=== PATIENT | male | born 1955 | race Caucasian/White ===

== ENCOUNTER 2017-12-29 17:30 | Emergency (ER) | payer BC ==
[2017-12-29 17:37] VITALS: RESP 16
--- NOTE | 2017-12-29 18:00 | CPEKG ---
Heart Rate: 64 RR Interval: 938 P-R Interval: 144 QRSD Interval: 90 QT Interval: 388 QTC Interval: 401 P [place]: -29 QRS [place]: 34 T Wave [place]: 10 EKG Severity - NORMAL ECG - EKG Impression: SINUS RHYTHM Electronically Signed By: Alec Rios 30-Dec-2017 00:14:05
[2017-12-29 18:09] LABS: PLATELET COUNT 233 10^3/uL (150-400)
--- NOTE | 2017-12-29 18:15 | EDPHY ---
H & P Stated Complaint: sent from [facility], abnormal EKG Time Seen by Provider: 12/29/17 18:04 HPI/ROS: CHIEF COMPLAINT: "Tingling in chest" HISTORY OF PRESENT ILLNESS: The patient presents emergency department with a complaint of tingling in his chest. The patient reportedly has a history of coronary artery disease status post CABG 6 years ago with an unremarkable stress test 3 years ago. He has been having brief paresthesias in his chest today. The patient denies any exertional chest pain or shortness of breath. 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 The patient denies any fever, cough or congestion. The patient denies any history of exertional chest pain or shortness of breath. He denies recent medication changes. He has been compliant with his regular medications and aspirin. REVIEW OF SYSTEMS: A comprehensive 10 point review of systems is otherwise negative aside from elements mentioned in the history of present illness. Source: Patient Exam Limitations: No limitations - Personal History Current Tetanus/Diphtheria Vaccine: Unsure Current Tetanus Diphtheria and Acellular Pertussis (TDAP): Unsure Tetanus Vaccine Date: UNSURE - Medical/Surgical History Hx Asthma: Yes Hx Chronic Respiratory Disease: No Hx Diabetes: No Hx Cardiac Disease: Yes Hx Renal Disease: No Hx Cirrhosis: No Hx Alcoholism: No Hx HIV/AIDS: No Hx Splenectomy or Spleen Trauma: No Other PMH: CABG x2 vessel, HTN - Social History Smoking Status: Former smoker - Physical Exam Exam: General Appearance: Alert, no distress Eyes: Pupils equal and round no pallor or injection ENT, Mouth: Mucous membranes moist Respiratory: There are no retractions, lungs are clear to auscultation Cardiovascular: Regular rate and rhythm Gastrointestinal: Abdomen is soft and nontender, no masses, bowel sounds normal Neurological: A&O, normal motor function, normal sensory exam, normal cranial nerves Skin: Warm and dry, no rashes Musculoskeletal: Neck is supple nontender Extremities: symmetrical, full range of motion Constitutional: Initial Vital Signs Temperature (C) 36.9 C 12/29/17 17:35 Heart Rate 71 12/29/17 17:35 Respiratory Rate 16 12/29/17 17:35 Blood Pressure 134/75 H 12/29/17 17:35 O2 Sat (%) 94 12/29/17 17:35 O2 Delivery Mode Room Air Allergies/Adverse Reactions: codeine [Codeine] Allergy (Verified 12/29/17 17:38) Rash Penicillins Allergy (Verified 12/29/17 17:38) Rash Home Medications: Medication Instructions Recorded Aspirin [Aspirin 81mg (OTC)] 81 mg PO DAILY 03/09/12 Multivitamins [Multivitamin (OTC)] 1 each PO DAILY 03/09/12 Rosuvastatin Calcium [Crestor 20mg 20 mg PO DAILY 02/20/13 (RX)] CO Q-10 09/03/14 Medical Decision Making - Diagnostics EKG Interpretation: EKG: Complete interpretation has been separately recorded in the [employer] archive. Summary impression: Sinus rhythm, rate 64, no ischemic changes noted Imaging Results: Imaging Impressions Chest X-Ray 12/29/17 18:04 Impression: Negative chest. ED Course/Re-evaluation: The patient presents to the ED for evaluation of atypical chest pain. Upon arrival the patient's EKG is nonischemic in demonstrates only nonspecific ST T wave changes. The patient's troponin is normal despite a day of symptoms. His chest x-ray is unremarkable. The patient's symptoms certainly sound atypical. I talked with him about options including hospitalization versus discharged home with follow up with Cardiology for stress testing. The patient prefers to be discharged home. He does understand to return to the ED for protracted chest pain or shortness of breath. The patient has been informed about our ability to fully exclude the presence of progressive coronary artery disease. Differential Diagnosis: Differential diagnosis considered includes acute coronary syndrome, pericarditis , arrhythmia, aortic dissection, pneumonia - Data Points Laboratory Results: Laboratory Results 12/29/17 18:02 12/29/17 18:02 12/29/17 12/29/17 18:02 18:02 WBC 6.49 10^3/uL 10^3/uL (3.80-9.50) RBC 4.89 10^6/uL 10^6/uL (4.40-6.38) Hgb 14.2 g/dL g/dL (13.7-17.5) Hct 40.7 % % (40.0-51.0) MCV 83.2 fL fL (81.5-99.8) MCH 29.0 pg pg (27.9-34.1) MCHC 34.9 g/dL g/dL (32.4-36.7) RDW 12.8 % % (11.5-15.2) Plt Count 233 10^3/uL 10^3/uL (150-400) MPV 10.5 fL fL (8.7-11.7) Neut % (Auto) 57.6 % % (39.3-74.2) Lymph % (Auto) 28.0 % % (15.0-45.0) [place] % (Auto) 11.1 % % (4.5-13.0) Eos % (Auto) 2.3 % % (0.6-7.6) Baso % (Auto) 0.5 % % (0.3-1.7) Nucleat RBC Rel Count 0.0 % % (0.0-0.2) Absolute Neuts (auto) 3.74 10^3/uL 10^3/uL (1.70-6.50) Absolute Lymphs (auto) 1.82 10^3/uL 10^3/uL (1.00-3.00) Absolute Monos (auto) 0.72 10^3/uL 10^3/uL (0.30-0.80) Absolute Eos (auto) 0.15 10^3/uL 10^3/uL (0.03-0.40) Absolute Basos (auto) 0.03 10^3/uL 10^3/uL (0.02-0.10) Absolute Nucleated RBC 0.00 10^3/uL 10^3/uL (0-0.01) Immature Gran % 0.5 % % (0.0-1.1) Immature Gran # 0.03 10^3/uL 10^3/uL (0.00-0.10) Sodium 140 mEq/L mEq/L (135-145) Potassium 4.3 mEq/L mEq/L (3.5-5.2) Chloride 101 mEq/L mEq/L (97-110) Carbon Dioxide 29 mEq/l mEq/l (22-31) Anion Gap 10 mEq/L mEq/L (8-16) BUN 27 mg/dL H mg/dL (7-23) Creatinine 1.0 mg/dL mg/dL (0.7-1.3) Estimated GFR > 60 Glucose 78 mg/dL mg/dL (70-100) Calcium 9.9 mg/dL mg/dL (8.5-10.4) Troponin I < 0.012 ng/mL ng/mL (0.000-0.034) Departure - Departure Disposition: Home, Routine, Self-Care Clinical Impression: Chest pain Condition: Good Instructions: Chest Pain (ED) Additional Instructions: 1. Based upon the testing done in the Emergency Department today we see no evidence of a heart attack. 2. We are unable to fully exclude coronary artery disease based upon the testing available in the Emergency Department. 3. For this reason, we would like you to be seen by cardiology for consideration of additional testing within the next 3 days. 4. Please contact the workforce specialist you have been referred to schedule this appointment as soon as possible. Their offices are typically open from 8:30am- 5pm M-F. 5. Please return to the Emergency Department immediately for any recurrent chest pain, difficulty breathing or other concerns. Referrals: Helena Hernandez MD [Primary Care Provider] - As per Instructions
[2017-12-29 19:43] VITALS: BP 132/86; PULSE 59; TEMP 96.8; O2SAT 97
== END 2017-12-29 19:41 | disposition home or self-care (01) ==
DX: R07.9 Chest pain, unspecified (principal); I10 Essential (primary) hypertension; I25.810 Atherosclerosis of coronary artery bypass graft(s) without angina pectoris; J45.909 Unspecified asthma, uncomplicated; Z79.82 Long term (current) use of aspirin; Z87.891 Personal history of nicotine dependence

== ENCOUNTER → 2018-08-03 | Day surgery (SDC) | payer BC ==
[~2018-08-03] MED LIST: ASPIRIN EC 325 MG TAB PO ONE; ATROPINE SULFATE 1 MG/10 ML SYR IVP PRN; DIAZEPAM 5 MG TAB PO ONE; FAMOTIDINE 20 MG TAB PO ONE; HYDROCODONE/APAP 5/325 TAB PO PRN; IOPAMIDOL (ISOVUE-370) 150 ML BTL IV ONE; LIDOCAINE 1% 300 MG/30 ML SDV ONE; MIDAZOLAM 2 MG/2 ML VIAL ONE; NITROGLYCERIN 0.4 MG BTL SL PRN; NS 1,000 ML IV ONE; ONDANSETRON 4 MG/2 ML VIAL IVP PRN; diphenhydrAMINE 25 MG CAP PO ONE; fentaNYL 100 MCG/2 ML INJ ONE
[2018-08-03 08:18] LABS: PLATELET COUNT 220 10^3/uL (150-400)
[2018-08-03 08:25] LABS: INR 0.89 (0.83-1.16); PROTIME(PATIENT) 12.3 SEC (12.0-15.0)
--- NOTE | 2018-08-03 08:52 | PDHPUP ---
History & Physical Update H&P update statement: This history and physical update is based on an assessment of the patient which was completed after admission or registration (within 24 hours), but prior to the surgery/procedure. H&P update: H&P reviewed & patient examined, no change in patient's condition since H&P completed
--- NOTE | 2018-08-03 08:52 | PDPROPOC ---
Sedation Plan of Care Sedation Plan of Care: vital signs stable, mental status noted, patient educated of risks, benefits, alternatives, patient can tolerate sedation ASA Classification: ASA 2 Planned drugs: fentanyl, midazolam Mallampati Score: Class 2 Mallampati Reference Image: Patient passed 3-3-2 rule?: Yes
--- NOTE | 2018-08-03 09:10 | CPEKG ---
Test Reason : OPEN Blood Pressure : / mmHG Vent. Rate : 066 BPM Atrial Rate : 066 BPM P-R Int : 140 ms QRS Dur : 080 ms QT Int : 385 ms P-R-T Axes : 069 065 -44 degrees QTc Int : 404 ms Sinus rhythm Confirmed by Katy Jose ([id number]) on 08/03/2018 9:09:54 AM Referred By: Confirmed By:Katy Jose
--- NOTE | 2018-08-03 10:21 | PDDXCAT ---
Diagnostic Cath Note - . Date: 08/03/18 [employer] Technical Architect: Mando High-risk criteria on non-invasive testing: stress-induced moderate-size multiple perfusion defects - Procedure Access: right groin Procedure: left heart catheterization, coronary angiography, left ventriculogram - Materials Left Heart Cath size: 6F Left Heart Cath materials: standard multipack (JL4, JR4, pigtail) - Findings-Left Heart Catheterization LM: Short vessel, trifurcation into the LAD, ramus, and LCX vessels. No luminal irregularities were noted. LAD: Medium diameter vessel with a moderate stenosis proximally, just proximal to D1. In the mid portion of the vessel, D2 (principal branch) is noted and another, moderate stenosis was appreciated. In the mid to distal LAD, competitive flow from the MARTINEZ was noted. The mid to distal LAD is a smallish vessel. LCX: Medium diameter vessel with a smallish OM noted. Diffuse disease of 20% noted in the proximal portion of the vessel. RCA: Medium diameter vessel with severe distal stenosis. PRESLEY to the PD with small, but still patent, touch down. A critical (>80%) stenosis was noted to the RV branch in the ostium, but (a) flow was good and (b) there were numerous distal right to right collaterals noted. Ramus: Medium diameter vessel with a small lesion in the proximal portion (30%) and mid vessel, branching was noted. EDP: 24 mm Hg LVEF: 65% Wall motion: normal Complications: none Estimated blood loss: <50ml Closure method: Angioseal Assessment: Patient is a 63 y/o male with CAD s/p 2V CABG with MARTINEZ to LAD ( patent) and PRESLEY to PDA. Both bypass vessels are patent. Normal LVEF, normal wall motion. Perfusion defect to anterior wall (nothing to the inferior wall). Plan: Aggressive medical management to continue with ASA, statins, and ACEi. Given the findings on this angiography, would add Plavix (75 mg per day). Tempted to add this in the outpatient setting (in one week) to get the patient away from the angiogram today (and the arterial access). Intervention: none Patient Problems: Problems Problem Status Onset CAD - Coronary arteriosclerosis Active Hyperlipidemia Active
== END ==
LOC: FCATH 07:32
PROVIDERS: ATTEND Internal Medicine Cardiovascular Disease
PROC: 4A023N7 Measurement of Cardiac Sampling and Pressure, Left Heart, Percutaneous Approach (ICD-10-PCS; principal; 2018-08-03)
PROC: B2151ZZ Fluoroscopy of Left Heart using Low Osmolar Contrast (ICD-10-PCS; principal; 2018-08-03)
PROC: B2111ZZ Fluoroscopy of Multiple Coronary Arteries using Low Osmolar Contrast (ICD-10-PCS; principal; 2018-08-03)
DX: R94.39 Abnormal result of other cardiovascular function study (principal); I25.10 Atherosclerotic heart disease of native coronary artery without angina pectoris; Z95.1 Presence of aortocoronary bypass graft; I10 Essential (primary) hypertension; E78.5 Hyperlipidemia, unspecified
CPT/HCPCS: C1760; J1644; J2250; J3010; Q9967